=== PATIENT | female | born 1990 | race African-American/Black ===

== ENCOUNTER 2017-02-26 09:04 | Emergency (ER) | payer OTHER ==
[~2017-02-26] VITALS: Ht 162.6 cm; Wt 111.0 kg
[~2017-02-26 09:04] MED LIST: BENTYL20 MG PO; KEFLEX500 MG PO; RISPERDAL0.5 MG PO; VALTREX1000 MG PO; ZOFRAN ODT4 MG PO
[2017-02-26 10:03] LABS: EOSINOPHIL (%) 1.7 % (0-5); EOSINOPHIL COUNT 0.2 K/uL (0-0.3); HEMATOCRIT 43.4 % (36.0-46.0); IMMATURE GRANULOCYTE (%) 0.3 % (0.0-0.7); INSTRUMENT ABS NEUTROPHIL CT 6.2 K/uL; LYMPHOCYTE COUNT 2.4 K/uL (1.0-2.8); MCH 28.5 PG (29.0-34.0); MCHC 33.2 G/DL (30.0-36.0); MCV 85.9 FL (83-99); MONOCYTE (%) 6.3 % (3-12); MONOCYTE COUNT 0.6 K/uL (0-0.8); NEUTROPHIL (%) 66.2 % (45-76); NEUTROPHIL COUNT 6.2 K/uL (1.8-6.4); PLATELET COUNT 479 K/uL (156-360); RBC DIS.WIDTH-CV 12.9 % (11.8-14.6); RBC DIS.WIDTH-SD 39.9 % (39-53); RED BLOOD COUNT 5.05 M/uL (3.80-5.20); WHITE BLOOD COUNT 9.4 K/uL (4.1-10.2)
[2017-02-26 10:18] LABS: CHLORIDE 107 mEq/L (99-109); POTASSIUM 3.7 mEq/L (3.7-5.4); SODIUM 139 mEq/L (136-147)
[2017-02-26 10:21] LABS: GLUCOSE 96 mg/dL (70-99)
[2017-02-26 10:22] LABS: ANION GAP 10 MEQ/L (2-14)
[2017-02-26 10:23] LABS: TOTAL BILIRUBIN 0.9 mg/dL (0.0-1.0)
[2017-02-26 10:24] LABS: ALKALINE PHOSPHATASE 65 IU/L (3-129); GFR ESTIMATE (CALCULATED) > 59 mL/min/
[2017-02-26 10:25] LABS: UREA NITROGEN (BUN) 8 mg/dL (9-23)
[2017-02-26 10:26] LABS: ADD MIUA? YES; BILIRUBIN MODERATE; BLOOD NEGATIVE; COLOR AMBER ((YELLOW)); GLUCOSE (STRIP) NEGATIVE; KETONES 5; LEUKOCYTES LARGE; NITRITE NEGATIVE; PROTEIN (STRIP) 100; SPECIFIC GRAVITY 1.041 (1.000-1.030)
[2017-02-26 10:27] LABS: TROP-I INTERPRETATION NEGATIVE; TROPONIN-I < 0.01 ng/mL (0.0-0.30)
[2017-02-26 10:36] LABS: QUANTITATIVE HCG 112.1 MIU/ML
[2017-02-26 10:38] LABS: BACTERIA RARE /HPF; EPITHELIAL CELLS 2+ /HPF; HYALINE CASTS 0-5 /LPF; MUCUS 4+ /LPF; RED BLOOD CELLS 15-20 /HPF (0-5); UCUL ADDED? NO; WHITE BLOOD CELLS 15-20 /HPF (0-5)
[2017-02-26 10:50] LABS: ICTOTEST NEGATIVE
[2017-02-26 12:04] LABS: TROP-I INTERPRETATION NEGATIVE; TROPONIN-I < 0.01 ng/mL (0.0-0.30)
[2017-02-26] MEDS ORDERED: MACROBID100 MG PO (12:13)
[2017-02-26 12:51] VITALS: BP 111/65
== END 2017-02-26 12:53 | disposition home or self-care (01) ==
LOC: EME 09:04
PROVIDERS: Physician Assistant
DX: O23.30 Infections of other parts of urinary tract in pregnancy, unspecified trimester (principal); R07.89 Other chest pain; F17.200 Nicotine dependence, unspecified, uncomplicated; Z3A.00 Weeks of gestation of pregnancy not specified
CPT/HCPCS: 71020; 80053; 81003; 84484; 84702; 85025; 93005; 99281; 99284

== ENCOUNTER 2017-07-12 09:14 | Emergency (ER) | payer OTHER ==
[~2017-07-12] VITALS: Ht 160 cm; Wt 111.5 kg
[~2017-07-12 09:14] MED LIST changes: +MACROBID100 MG PO
[2017-07-12 09:57] LABS: HEMATOCRIT 44.2 % (36.0-46.0); MCH 28.6 PG (29.0-34.0); MCHC 32.8 G/DL (30.0-36.0); MCV 87.2 FL (83-99); MEAN PLAT.VOLUME 9.2 uM^3 (9.5-12.4); PLATELET COUNT 466 K/uL (156-360); RBC DIS.WIDTH-CV 13.1 % (11.8-14.6); RBC DIS.WIDTH-SD 41.6 % (39-53); RED BLOOD COUNT 5.07 M/uL (3.80-5.20); WHITE BLOOD COUNT 15.2 K/uL (4.1-10.2)
[2017-07-12 10:07] LABS: ADD MIUA? YES; BILIRUBIN NEGATIVE; BLOOD LARGE; COLOR YELLOW ((YELLOW)); GLUCOSE (STRIP) 50; KETONES NEGATIVE; LEUKOCYTES SMALL; NITRITE NEGATIVE; PROTEIN (STRIP) NEGATIVE; SPECIFIC GRAVITY 1.019 (1.000-1.030); UROBILINOGEN 0.2 MG/DL (0.2-1.0)
[2017-07-12 10:09] LABS: CHLORIDE 108 mEq/L (99-109); POTASSIUM 3.6 mEq/L (3.7-5.4); SODIUM 138 mEq/L (136-147)
[2017-07-12 10:12] LABS: GLUCOSE 172 mg/dL (70-99)
[2017-07-12 10:13] LABS: ANION GAP 10 MEQ/L (2-14)
[2017-07-12 10:14] LABS: TOTAL BILIRUBIN 0.7 mg/dL (0.0-1.0)
[2017-07-12 10:15] LABS: ALKALINE PHOSPHATASE 83 IU/L (3-129); GFR ESTIMATE (CALCULATED) > 59 mL/min/
[2017-07-12 10:16] LABS: UREA NITROGEN (BUN) 7 mg/dL (9-23)
[2017-07-12 10:19] LABS: BACTERIA RARE /HPF; EPITHELIAL CELLS 1+ /HPF; MUCUS 1+ /LPF; RED BLOOD CELLS TNTC /HPF (0-5); UCUL ADDED? YES; WHITE BLOOD CELLS 20-30 /HPF (0-5)
[2017-07-12 10:24] LABS: QUANTITATIVE HCG < 4.0 MIU/ML
[2017-07-12] MEDS ORDERED: ZOFRAN ODT4 MG PO (12:45)
[2017-07-12] MEDS ORDERED: MOTRIN800 MG PO (12:45)
[2017-07-12] MEDS ORDERED: KEFLEX500 MG PO (12:45)
[2017-07-12] MEDS ORDERED: PHENERGAN25 MG PR (12:49)
[2017-07-12] MEDS ORDERED: FLEXERIL10 MG PO (12:49)
[2017-07-12 13:05] VITALS: BP 118/72
== END 2017-07-12 13:07 | disposition home or self-care (01) ==
LOC: EME 09:14
PROVIDERS: Nurse Practitioner Family
DX: R11.2 Nausea with vomiting, unspecified (principal); R10.30 Lower abdominal pain, unspecified; R31.9 Hematuria, unspecified; F17.200 Nicotine dependence, unspecified, uncomplicated
CPT/HCPCS: 74176; 80053; 81003; 84702; 85027; 87086; 99281; 99284; J1885; J2405; J2765; J3010; J7030; J7050

== ENCOUNTER 2017-08-31 18:49 | Emergency (ER) | payer OTHER ==
[~2017-08-31] VITALS: Ht 160 cm; Wt 102.2 kg
[~2017-08-31 18:49] MED LIST changes: +DOXYCYCLINE HY100 M3 PO; +FLEXERIL10 MG PO; +MOTRIN800 MG PO; +ONDANSETRON HCL4 MG PO; +PHENERGAN25 MG PR; +SERTRALINE HCL25 MG PO
[2017-08-31 19:51] LABS: HEMATOCRIT 43.8 % (36.0-46.0); MCH 28.8 PG (29.0-34.0); MCHC 33.3 G/DL (30.0-36.0); MCV 86.4 FL (83-99); MEAN PLAT.VOLUME 9.2 uM^3 (9.5-12.4); PLATELET COUNT 588 K/uL (156-360); RBC DIS.WIDTH-CV 12.7 % (11.8-14.6); RBC DIS.WIDTH-SD 39.8 % (39-53); RED BLOOD COUNT 5.07 M/uL (3.80-5.20); WHITE BLOOD COUNT 12.7 K/uL (4.1-10.2)
[2017-08-31 20:02] LABS: CHLORIDE 102 mEq/L (99-109); POTASSIUM 4.3 mEq/L (3.7-5.4); SODIUM 142 mEq/L (136-147)
[2017-08-31 20:04] LABS: GLUCOSE 108 mg/dL (70-99)
[2017-08-31 20:05] LABS: ANION GAP 17 MEQ/L (2-14)
[2017-08-31 20:08] LABS: ALKALINE PHOSPHATASE 86 IU/L (3-129); GFR ESTIMATE (CALCULATED) > 59 mL/min/; TOTAL BILIRUBIN 0.7 mg/dL (0.0-1.0)
[2017-08-31 20:09] LABS: UREA NITROGEN (BUN) 10 mg/dL (9-23)
[2017-08-31 20:11] LABS: LIPASE 9 U/L (1.0-51.0)
[2017-08-31 20:20] LABS: QUANTITATIVE HCG < 4.0 MIU/ML
[2017-08-31 21:09] LABS: ADD MIUA? YES; BILIRUBIN NEGATIVE; BLOOD NEGATIVE; COLOR YELLOW ((YELLOW)); GLUCOSE (STRIP) NEGATIVE; KETONES 80; LEUKOCYTES SMALL; NITRITE NEGATIVE; PROTEIN (STRIP) 30; SPECIFIC GRAVITY 1.015 (1.000-1.030); UROBILINOGEN 0.2 MG/DL (0.2-1.0)
[2017-08-31 21:22] LABS: BACTERIA RARE /HPF; EPITHELIAL CELLS 2+ /HPF; MUCUS TRACE /LPF; UCUL ADDED? YES
[2017-08-31 22:45] VITALS: BP 138/90
[2017-09-01 12:30] LABS: CHLAMYDIA TRACHOMATIS NEGATIVE; NEISSERIA GONORRHOEAE POSITIVE
== END 2017-08-31 22:55 | disposition home or self-care (01) ==
LOC: EME 18:49
PROVIDERS: Emergency Medicine
DX: N73.9 Female pelvic inflammatory disease, unspecified (principal); F17.200 Nicotine dependence, unspecified, uncomplicated
CPT/HCPCS: 74177; 80053; 81003; 83690; 84702; 85027; 87086; 87210; 87491; 87591; 99281; 99285; J7030

== ENCOUNTER 2017-09-08 13:46 | Emergency (ER) | payer OTHER ==
[~2017-09-08] VITALS: Ht 162.6 cm; Wt 101.0 kg
[2017-09-08] MEDS ORDERED: MOTRIN800 MG PO (15:21)
[2017-09-08] MEDS ORDERED: FLEXERIL10 MG PO (15:21)
[2017-09-08 15:32] VITALS: BP 124/86
[2017-09-11] MEDS ORDERED: INDOCIN50 MG PO (19:23)
[2017-09-11] MEDS ORDERED: VALIUM2 MG PO (19:23)
== END 2017-09-08 15:35 | disposition home or self-care (01) ==
LOC: EME 13:46
DX: S50.02XA Contusion of left elbow, initial encounter (principal); S80.211A Abrasion, right knee, initial encounter; V03.10XA Pedestrian on foot injured in collision with car, pick-up truck or van in traffic accident, initial encounter; Y92.410 Unspecified street and highway as the place of occurrence of the external cause; M62.838 Other muscle spasm; F31.9 Bipolar disorder, unspecified; F17.200 Nicotine dependence, unspecified, uncomplicated
CPT/HCPCS: 73080; 99281; 99283

== ENCOUNTER 2018-02-23 22:00 | Emergency (ER) | payer OTHER ==
[~2018-02-23] VITALS: Ht 160 cm; Wt 94.0 kg
[~2018-02-23 22:00] MED LIST changes: +INDOCIN50 MG PO; +VALIUM2 MG PO
[2018-02-23 22:37] LABS: APPEARANCE CLOUDY ((CLEAR)); BILIRUBIN SMALL; BLOOD NEGATIVE; COLOR AMBER ((YELLOW)); GLUCOSE (STRIP) NEGATIVE; KETONES 20; LEUKOCYTES NEGATIVE; NITRITE NEGATIVE; PROTEIN (STRIP) 100; SPECIFIC GRAVITY 1.035 (1.000-1.030); UROBILINOGEN 0.2 MG/DL (0.2-1.0)
[2018-02-23 22:38] LABS: HEMATOCRIT 48.5 % (36.0-46.0); HEMOGLOBIN 16.4 G/DL (11.9-15.5); MCH 29.1 PG (29.0-34.0); MCHC 33.8 G/DL (30.0-36.0); MCV 86.1 FL (83-99); PLATELET COUNT 516 K/uL (156-360); RBC DIS.WIDTH-CV 12.8 % (11.8-14.6); RED BLOOD COUNT 5.63 M/uL (3.80-5.20); WHITE BLOOD COUNT 11.9 K/uL (4.1-10.2)
[2018-02-23 22:51] LABS: CHLORIDE 99 mEq/L (99-109); POTASSIUM 3.4 mEq/L (3.7-5.4); SODIUM 140 mEq/L (136-147)
[2018-02-23 22:53] LABS: GLUCOSE 107 mg/dL (70-99); TOTAL PROTEIN 8.6 g/dL (6.4-8.3)
[2018-02-23 22:55] LABS: TOTAL BILIRUBIN 1.4 mg/dL (0.0-1.0)
[2018-02-23 22:55] LABS: BACTERIA RARE /HPF; EPITHELIAL CELLS 4+ /HPF; HYALINE CASTS 0-5 /LPF; MUCUS 4+ /LPF; UCUL ADDED? NO; WHITE BLOOD CELLS 0-5 /HPF (0-5)
[2018-02-23 22:56] LABS: ALKALINE PHOSPHATASE 88 IU/L (3-129)
[2018-02-23 22:57] LABS: GFR ESTIMATE (CALCULATED) > 59 mL/min/
[2018-02-23 22:58] LABS: AST (GOT) 15 IU/L (2-34); UREA NITROGEN (BUN) 13 mg/dL (9-23)
[2018-02-23 22:59] LABS: ALT (GPT) 14 IU/L (3-49)
[2018-02-23 23:06] LABS: QUANTITATIVE HCG < 4.0 MIU/ML
[2018-02-24 01:13] LABS: LIPASE 15 U/L (1.0-51.0)
[2018-02-24] MEDS ORDERED: REGLAN10 MG PO ×2 (02:40→02:42)
[2018-02-24 02:50] VITALS: BP 115/79
== END 2018-02-24 02:50 | disposition home or self-care (01) ==
LOC: EME 22:00
DX: R10.30 Lower abdominal pain, unspecified (principal); F17.200 Nicotine dependence, unspecified, uncomplicated
CPT/HCPCS: 74177; 80053; 81003; 83690; 84702; 85027; 99281; 99285; J2405; J2765; J7120